=== PATIENT | female | born 1955 | race Caucasian/White ===

== ENCOUNTER 2025-01-30 05:00 | Day surgery (SDC) | payer OTHER ==
[~2025-01-30 05:00] MED LIST: AZOR 5-20 MG T1 EACH; GLYCOTROL CAPS1 EACH; HYDROCODONE-HO473 ML; LIPITOR40 M1; LIPITOR40 MG; VYTORIN 10-101 EACH
[2025-01-30] MEDS ORDERED: CIPROFLOXACIN IN 5 % DEXTROSE 400 MG/200 ML PIGGYBAG IV ONE (08:38)
[2025-01-30] MEDS ORDERED: BUPIVACAINE HCL/MPF 0.5% 30ML VIAL ONE (09:49)
[2025-01-30] MEDS ORDERED: LIDOCAINE HCL 1%/EPINEPHRINE 20ML VIAL IJ ONE (09:49)
[2025-01-30] MEDS ORDERED: HYDROGEN PEROXIDE 473 ML BOTTLE TOP ONE (10:07)
[2025-01-30] MEDS ORDERED: BACTRIM DS TAB1 EACH PO (11:23)
[2025-01-30] MEDS ORDERED: TRAM1TAB98 PO (11:24)
== END 2025-01-30 12:45 | disposition home or self-care (01) ==
LOC: CIR.AMB 05:00
PROVIDERS: ATTEND Surgery
DX: D49.2 Neoplasm of unspecified behavior of bone, soft tissue, and skin (principal); D21.0 Benign neoplasm of connective and other soft tissue of head, face and neck; R22.0 Localized swelling, mass and lump, head; Z88.0 Allergy status to penicillin

== ENCOUNTER 2025-07-17 07:00 | Day surgery (SDC) | payer OTHER ==
[2025-07-09 11:54] VITALS: BP 123/78
[~2025-07-17] VITALS: Ht 160 cm; Wt 75.3 kg
[~2025-07-17 07:00] MED LIST changes: +BACTRIM DS TAB1 EACH PO; +CATAFLAM; +CIPROFLOXACIN IN 5 % DEXTROSE 400 MG/200 ML PIGGYBAG IV SCH; +TRAM1TAB98 PO
[2025-07-17] MEDS ORDERED: CIPROFLOXACIN IN 5 % DEXTROSE 400 MG/200 ML PIGGYBAG IV ONE (09:46)
[2025-07-17] MEDS ORDERED: TYLENOL325 MG PO (10:49)
[2025-07-17] MEDS ORDERED: CIPRO500 MG PO (10:50)
== END 2025-07-17 13:10 | disposition home or self-care (01) ==
LOC: CIR.AMB 07:00
PROVIDERS: ATTEND Surgery
DX: D49.2 Neoplasm of unspecified behavior of bone, soft tissue, and skin (principal); R22.2 Localized swelling, mass and lump, trunk